=== PATIENT | female | born 1990 | race American Indian/Alaskan Native ===

== ENCOUNTER 2016-11-07 20:21 | Emergency (ER) | payer SELFPAY ==
[2016-11-08] MEDS ORDERED: FLEXERIL PO ONE (00:31)
[2016-11-08] MEDS ORDERED: TORADOL IM ONE (00:31)
--- NOTE | 2016-11-08 00:43 | Emergency Department Report ---
HPI - General Chief Complaint: Extremity Injury, Lower Time Seen by Provider: 11/08/16 00:01 - HPI HPI: Patient is a 26-year-old female presents to ED complaining of right wrist pain 1 day. Patient states she woke up yesterday morning pain on the right wrist. Patient states she did not injure the wrist in any way. She states she has a history of carpal from playing [employer] back in high school. She denies loss of sensation in wrist or hand, radiating pain, fever chills nausea vomiting abdominal pain and shortness of breath chest pain or any other problems. ED Past Medical Hx - Past Medical History Previous Medical History?: Yes Additional medical history: bronchitis - Social History Smoking Status: Never Smoker Substance Use Type: None - Medications Home Medications: Home Medications Medication Instructions Recorded Confirmed Last Taken Type Amoxicillin [Trimox CAP] 500 mg PO Q8H #30 capsule 03/17/14 Unknown Rx Vit#96/Ferrous Fum/FA 1 each PO QDAY #30 tablet 03/17/14 Unknown Rx [ Tablet] Amoxicillin [Amoxicillin TAB] 875 mg PO BID #20 tablet 04/30/14 Unknown Rx Cyclobenzaprine [Flexeril 10 MG 10 mg PO QHS #30 tablet 11/08/16 Unknown Rx TAB] Naproxen [Naprosyn] 500 mg PO BID #40 tablet 11/08/16 Unknown Rx ED Review of Systems ROS: Stated complaint: RT ARM/WRIST/FINGER PAIN/SWOLLEN Other details as noted in HPI Constitutional: denies: chills, fever Eyes: denies: eye pain, eye discharge, vision change ENT: denies: ear pain, throat pain Respiratory: denies: cough, shortness of breath, wheezing Cardiovascular: denies: chest pain, palpitations Endocrine: no symptoms reported Gastrointestinal: denies: abdominal pain, nausea, diarrhea Genitourinary: denies: urgency, dysuria, discharge Musculoskeletal: denies: back pain, joint swelling, arthralgia Skin: denies: rash, lesions Neurological: denies: headache, weakness, paresthesias Psychiatric: denies: anxiety, depression Hematological/Lymphatic: denies: easy bleeding, easy bruising Physical Exam - Physical Exam Vital Signs: Vital Signs 11/07/16 22:47 Temperature 98.5 F Pulse Rate 58 L Respiratory 20 Rate Blood Pressure 134/70 O2 Sat by Pulse 99 Oximetry Physical Exam: GENERAL: Alert and oriented x3, no apparent distress, Normal Gait, atraumatic. HEAD: Head is normocephalic and a-traumatic. EYES: Extra ocular muscles are intact. Pupils are equal, round, and reactive to light and accommodation. LUNGS: Symetrical with respiration, No wheezing, no rales or crackles, CTAB. HEART: S1, S2 present, regular rate and rhythm without murmur, no rubs, no gallops. Non tender to palpation ABDOMEN: No organomegaly was noted,Positive bowel sounds, soft, and non- distended. Nontender to palpation on all Quadrants, NO CVA tenderness. EXTREMITIES/MUSCULOSKELETAL: No cyanosis, clubbing, rash, lesions or edema. Full ROM bilaterally. Radial Pulses 2+ bilaterally. LE and UE 5+ strength bilaterally. Respiratory is intact. No edema, no erythematous, no swelling. NEUROLOGIC: The patient is cooperative with no focal neurologic deficits. Cranial nerves II through XII are grossly intact. Normal speech. PSYCHIATRIC: Mood is congruent with affect, denies suicidal or homicidal ideations. SKIN: Warm and dry, No lesions, No ulceration or induration present. ED Course Vital Signs 11/07/16 22:47 Temperature 98.5 F Pulse Rate 58 L Respiratory 20 Rate Blood Pressure 134/70 O2 Sat by Pulse 99 Oximetry ED Medical Decision Making - Medical Decision Making 26-year-old female presents with strain of the wrist ED course: Patient received Toradol and Flexeril in ED. X-ray of the hand and wrist ordered. X-ray of the hand and wrist shows fractures dislocations no acute findings Discussed this patient x-ray findings Discussed patient to rest arm wrist brace given to patient prior to discharge Vital signs are normal patient is now acute distress Discuss heat therapy to wrist 3 times daily. Follow-up with primary care physician in 3-5 days Critical care attestation.: If time is entered above; I have spent that time in minutes in the direct care of this critically ill patient, excluding procedure time. ED Disposition Clinical Impression: Arthralgia of wrist, right Disposition: DC-01 TO HOME OR SELFCARE Is pt being admited?: No Does the pt Need Aspirin: No Condition: Stable Instructions: Arthralgia (ED), Carpal Tunnel Syndrome (ED) Prescriptions: Cyclobenzaprine [Flexeril 10 MG TAB] 10 mg PO QHS #30 tablet Naproxen [Naprosyn] 500 mg PO BID #40 tablet Referrals: PRIMARY CARE, [Primary Care Provider] - 3-5 Days [facility] [place]] - 3-5 Days [facility] [Outside] - 3-5 Days Forms: Work/School Release Form(ED) Time of Disposition: 00:56
--- NOTE | 2016-11-08 02:05 | XRay Report ---
FINAL REPORT PROCEDURE: XR HAND 3 RT TECHNIQUE: RIGHT hand radiographs, AP, lateral, and oblique views. CPT 55896-XH HISTORY: right wrist pain COMPARISON: No prior studies are available for comparison. FINDINGS: Fracture (s) and/or Dislocation(s): None . Alignment: Normal . Joint space(s): Normal . Soft tissues: Normal . Bone mineralization: Normal . Foreign bodies: None . IMPRESSION: Normal Examination .
[2016-11-08 02:54] VITALS: BP 118/64
== END 2016-11-08 02:59 | disposition home or self-care (01) ==
LOC: ED 20:21
DX: M25.531 Pain in right wrist (principal)
CPT/HCPCS: 73130; 81025; 96372; 99284; J1885

== ENCOUNTER 2017-01-26 12:03 | Emergency (ER) | payer SELFPAY ==
[2017-01-26 12:59] LABS: Basophils % (Auto) 0.2 % (0.0-1.8); Hematocrit 34.7 % (30.3-42.9); Hemoglobin 11.1 gm/dl (10.1-14.3); Mean Corpuscular HGB Conc 32 % (30-34); Mean Corpuscular Volume 72 fl (79-97); Platelet Count 432 K/mm3 (140-440); Red Blood Count 4.85 M/mm3 (3.65-5.03); Red Cell Distribution Width 18.9 % (13.2-15.2); White Blood Count 9.1 K/mm3 (4.5-11.0)
[2017-01-26 13:10] LABS: Mean Corpuscular Hemoglobin 23 pg (28-32)
[2017-01-26 13:20] LABS: Anion Gap 17 mmol/L; BUN/Creatinine Ratio 18.33; Blood Urea Nitrogen 11 mg/dL (7-17); Carbon Dioxide 25 mmol/L (22-30); Chloride 102.3 mmol/L (98-107); Glucose 88 mg/dL (65-100); Potassium 3.7 mmol/L (3.6-5.0); Sodium 141 mmol/L (137-145)
[2017-01-26 14:44] LABS: Bilirubin,Urine NEG (Negative); Blood,Urine NEG (Negative); Ketones,Urine NEG (Negative); Leukocyte Esterase,Urine TR (Negative); Mucus,Urine 3+ /HPF; Nitrite,Urine NEG (Negative); Protein,Urine <15 mg/dL mg/dL (Negative); Urobilinogen,Urine < 2.0 mg/dL (<2.0)
[2017-01-26 17:07] VITALS: BP 117/64
[2017-01-26] MEDS ORDERED: ATROVENT IH ONE (17:11)
[2017-01-26] MEDS ORDERED: XOPENEX IH ONE (17:11)
--- NOTE | 2017-01-26 17:15 | Emergency Department Report ---
ED Shortness of Breath HPI - General Chief Complaint: Chest Pain Stated Complaint: COUGHING,CHEST PAIN Time Seen by Provider: 01/26/17 17:02 Source: patient Mode of arrival: Ambulatory Limitations: No Limitations - History of Present Illness Initial Comments: 26 years old female history of bronchitis and today was shortness of breath cough productive for 3 days associated with sharp chest pain. Patient stated that she went to an urgent care she received breathing treatments and prednisone but has symptom is not getting better. MD Complaint: shortness of breath, cough, chest pain -: days(s) Quality: sharp Associated Symptoms: chest pain, cough, sputum production - Related Data Previous Rx's Medication Instructions Recorded Last Taken Type Amoxicillin [Trimox CAP] 500 mg PO Q8H #30 capsule 03/17/14 Unknown Rx Vit#96/Ferrous Fum/FA 1 each PO QDAY #30 tablet 03/17/14 Unknown Rx [ Tablet] Amoxicillin [Amoxicillin TAB] 875 mg PO BID #20 tablet 04/30/14 Unknown Rx Cyclobenzaprine [Flexeril 10 MG 10 mg PO QHS #30 tablet 11/08/16 Unknown Rx TAB] Naproxen [Naprosyn] 500 mg PO BID #40 tablet 11/08/16 Unknown Rx Allergies Allergy/AdvReac Type Severity Reaction Status Date / Time No Known Allergies Allergy Unverified 03/17/14 17:45 ED Review of Systems ROS: Stated complaint: COUGHING,CHEST PAIN Other details as noted in HPI Comment: All other systems reviewed and negative Constitutional: denies: chills, fever Respiratory: cough, shortness of breath. denies: orthopnea Gastrointestinal: denies: abdominal pain, nausea, vomiting Genitourinary: denies: dysuria Neurological: denies: headache, weakness, numbness ED Past Medical Hx - Past Medical History Previous Medical History?: No Additional medical history: bronchitis - Social History Smoking Status: Current Every Day Smoker - Medications Home Medications: Home Medications Medication Instructions Recorded Confirmed Last Taken Type Amoxicillin [Trimox CAP] 500 mg PO Q8H #30 capsule 03/17/14 Unknown Rx Vit#96/Ferrous Fum/FA 1 each PO QDAY #30 tablet 03/17/14 Unknown Rx [ Tablet] Amoxicillin [Amoxicillin TAB] 875 mg PO BID #20 tablet 04/30/14 Unknown Rx Cyclobenzaprine [Flexeril 10 MG 10 mg PO QHS #30 tablet 11/08/16 Unknown Rx TAB] Naproxen [Naprosyn] 500 mg PO BID #40 tablet 11/08/16 Unknown Rx ED Physical Exam - General Limitations: No Limitations General appearance: alert, in no apparent distress - Eye Eye exam: Present: normal appearance - ENT ENT exam: Present: normal exam - Neck Neck exam: Present: normal inspection - Respiratory Respiratory exam: Present: respiratory distress, wheezes, rhonchi, decreased breath sounds, prolonged expiratory. Absent: normal lung sounds bilaterally, rales, stridor, accessory muscle use - Cardiovascular Cardiovascular Exam: Present: regular rate, normal rhythm, normal heart sounds - GI/Abdominal GI/Abdominal exam: Present: soft. Absent: tenderness, guarding, rebound, rigid , normal bowel sounds - Back Exam Back exam: Present: normal inspection. Absent: CVA tenderness (R), CVA tenderness (L) - Neurological Exam Neurological exam: Present: alert, oriented X3, CN II-XII intact - Psychiatric Psychiatric exam: Present: normal affect - Skin Skin exam: Present: warm, normal color ED Course Vital Signs 01/26/17 01/26/17 01/26/17 12:10 17:05 17:41 Temperature 98.6 F 98.2 F Pulse Rate 56 L 56 L Pulse Rate [ Bilateral Upper Lobe] Respiratory 16 16 16 Rate Respiratory Rate [Bilateral Upper Lobe] Blood Pressure 141/56 Blood Pressure 141/56 117/64 [Left] O2 Sat by Pulse 99 99 99 Oximetry 01/26/17 01/26/17 17:56 18:07 Temperature Pulse Rate Pulse Rate [ 62 61 Bilateral Upper Lobe] Respiratory Rate Respiratory 18 18 Rate [Bilateral Upper Lobe] Blood Pressure Blood Pressure [Left] O2 Sat by Pulse Oximetry - Reevaluation(s) Reevaluation #1: 01/26/17 18:14 Patient stated that she is feeling better. No diminished breath sounds. Provide patient with prescription for amoxicillin and advised to follow-up with her primary care physician. ED Medical Decision Making - Lab Data Result diagrams: 01/26/17 12:40 01/26/17 12:40 Critical care attestation.: If time is entered above; I have spent that time in minutes in the direct care of this critically ill patient, excluding procedure time. ED Disposition Clinical Impression: Chest pain, Acute bronchitis Disposition: DC-01 TO HOME OR SELFCARE Is pt being admited?: No Condition: Stable Instructions: Chest Pain (ED), Acute Bronchitis (ED) Referrals: PRIMARY CARE,MD [Primary Care Provider] - 3-5 Days
== END 2017-01-26 18:55 | disposition home or self-care (01) ==
LOC: ED 12:03
DX: R07.9 Chest pain, unspecified (principal); J20.9 Acute bronchitis, unspecified; F17.200 Nicotine dependence, unspecified, uncomplicated
CPT/HCPCS: 36415; 80048; 81001; 81025; 84484; 85025; 93005; 93010; 94640

== ENCOUNTER 2021-12-16 11:42 | Emergency (ER) | payer OTHER ==
[2021-12-17 00:31] VITALS: BP 162/46
--- NOTE | 2021-12-17 01:05 | Emergency Department Report ---
ED GI Bleed HPI - General Chief complaint: GI Bleed Stated complaint: RECTAL BLEED/WEAK/DIZZY Time Seen by Provider: 12/17/21 00:58 Source: EMS Mode of arrival: Wheelchair Limitations: No Limitations - History of Present Illness Initial comments: 31 yo F who present with rectal bleeding that started Tuesday about 5 days ago. She reports only one bowel movement today and she came with the picture. Pt reports that she was at [facility] [place] the other day and was there all day and was not able to be seen by any provider before she left. Pt denies any history of hemorrhoids. Blood is bright red and a lot. She reports starting her menses yesterday as well. Pt also reports some dizziness and generalized fatigue x couple of weeks. She noted history of chronic anemia. When she called her PCP she was told to be evaluated at the ED. No other modifying or associated factors reported. MD complaint: blood on toilet paper, gross hematochezia Severity scale (0 -10): 5 - Related Data Previous Rx's Medication Instructions Recorded Last Taken Type Amoxicillin [Trimox CAP] 500 mg PO Q8H #30 capsule 03/17/14 Unknown Rx Vits96/Iron Fum/Folic 1 each PO QDAY #30 tablet 03/17/14 Unknown Rx [ Tablet] Amoxicillin [Amoxicillin TAB] 875 mg PO BID #20 tablet 04/30/14 Unknown Rx Cyclobenzaprine [Flexeril 10 MG 10 mg PO QHS #30 tablet 11/08/16 Unknown Rx TAB] Naproxen [Naprosyn] 500 mg PO BID #40 tablet 11/08/16 Unknown Rx Albuterol Mdi (or & Nicu Only) 2 puff IH QID PRN #1 inhalation 01/26/17 Unknown Rx [ProAir HFA Inhaler] Azithromycin [Zithromax Z-ANN] 250 mg PO DAILY 1 Days tab 01/26/17 Unknown Rx Allergies Allergy/AdvReac Type Severity Reaction Status Date / Time No Known Allergies Allergy Unverified 03/17/14 17:45 ED Review of Systems ROS: Stated complaint: RECTAL BLEED/WEAK/DIZZY Other details as noted in HPI Comment: All other systems reviewed and negative Constitutional: other (fatigue) Gastrointestinal: hematochezia ED Past Medical Hx - Past Medical History Additional medical history: bronchitis - Social History Smoking Status: Current Every Day Smoker - Medications Home Medications: Home Medications Medication Instructions Recorded Confirmed Last Taken Type Amoxicillin [Trimox CAP] 500 mg PO Q8H #30 capsule 03/17/14 Unknown Rx Vits96/Iron Fum/Folic 1 each PO QDAY #30 tablet 03/17/14 Unknown Rx [ Tablet] Amoxicillin [Amoxicillin TAB] 875 mg PO BID #20 tablet 04/30/14 Unknown Rx Cyclobenzaprine [Flexeril 10 MG 10 mg PO QHS #30 tablet 11/08/16 Unknown Rx TAB] Naproxen [Naprosyn] 500 mg PO BID #40 tablet 11/08/16 Unknown Rx Albuterol Mdi (or & Nicu Only) 2 puff IH QID PRN #1 inhalation 01/26/17 Unknown Rx [ProAir HFA Inhaler] Azithromycin [Zithromax Z-ANN] 250 mg PO DAILY 1 Days tab 01/26/17 Unknown Rx ED Physical Exam - General Limitations: No Limitations General appearance: alert, in no apparent distress - Head Head exam: Present: normal inspection - Eye Eye exam: Present: normal appearance Pupils: Present: normal accommodation - ENT ENT exam: Present: normal exam, normal orophraynx, mucous membranes moist - Neck Neck exam: Present: normal inspection, full ROM. Absent: tenderness - Respiratory Respiratory exam: Present: normal lung sounds bilaterally. Absent: respiratory distress, accessory muscle use - Cardiovascular Cardiovascular Exam: Present: regular rate, normal rhythm, normal heart sounds - GI/Abdominal GI/Abdominal exam: Present: soft, normal bowel sounds. Absent: distended, tenderness - Extremities Exam Extremities exam: Present: normal inspection, normal capillary refill. Absent: tenderness, pedal edema - Back Exam Back exam: Absent: tenderness ED Course Vital Signs 12/16/21 12/17/21 12:08 00:30 Pulse Rate 63 69 Respiratory 14 Rate Blood Pressure 130/90 162/46 [Left] O2 Sat by Pulse 98 100 Oximetry ED Medical Decision Making - Lab Data Result diagrams: 12/17/21 01:07 12/17/21 01:07 - Medical Decision Making Painless rectal bleeding -- suspected internal hemorrhoid bleeding, this could also be coming from patient's vagina -- but most importantly will order CBC, CMP for any infectious process or electrolytes abnormality -- Lab reviewed and noted with slightly lower hemoglobin/hematocrit from 11.1/34.9 to now 9.4/30.6 mg/dL--patient reassured to follow-up with supervisor pastry at [facility] for likely endoscope/colonoscopy in the next 1 to 2 weeks. Warning was given to call or return to emergency room for reevaluation if bleeding worsen or recall. Patient was not able to give any stool for testing at this point. She actually left her room and was staying at the waiting room for her discharge paperwork. Critical care attestation.: If time is entered above; I have spent that time in minutes in the direct care of this critically ill patient, excluding procedure time. ED Disposition Clinical Impression: Internal hemorrhoids without complication GI bleeding Qualifiers: GI bleed type/associated pathology: unspecified gastrointestinal hemorrhage type Qualified Code(s): K92.2 - Gastrointestinal hemorrhage, unspecified Disposition: 01 HOME / SELF CARE / HOMELESS Is pt being admited?: No Does the pt Need Aspirin: No Condition: Stable Instructions: Gastrointestinal Bleeding, Hemorrhoids, [id number] Additional Instructions: It is very important that you call and schedule follow-up with [facility] at #[phone] for further evaluation any of your rectal bleeding. Please call or return to emergency room if your bleeding worsen or recur Increase your daily fluid to help your hydration Forms: Accompanied Note Time of Disposition: 05:36
[2021-12-17 01:26] LABS: INR 0.92 (0.87-1.13); Partial Thromboplastin Time 26.9 Sec. (24.2-36.6)
[2021-12-17 01:28] LABS: Basophils % (Auto) 0.6 % (0.0-1.8); Eosinophils # (Auto) 0.1 K/mm3 (0.0-0.4); Eosinophils % (Auto) 1.3 % (0.0-4.3); Hematocrit 30.6 % (30.3-42.9); Hemoglobin 9.4 gm/dl (10.1-14.3); Lymphocytes % (Auto) 33.2 % (13.4-35.0); Mean Corpuscular HGB Conc 31 % (30-34); Mean Corpuscular Volume 72 fl (79-97); Monocytes # (Auto) 0.5 K/mm3 (0.0-0.8); Monocytes % (Auto) 7.7 % (0.0-7.3); Platelet Count 298 K/mm3 (140-440); Red Blood Count 4.26 M/mm3 (3.65-5.03)
[2021-12-17 01:29] LABS: Red Cell Distribution Width 21.3 % (13.2-15.2)
[2021-12-17 01:39] LABS: Alanine Aminotransferase 17 units/L (7-56); Albumin 3.9 g/dL (3.9-5); Blood Urea Nitrogen 11 mg/dL (7-17); Calcium 8.7 mg/dL (8.4-10.2); Hemolysis Index 0
[2021-12-17 02:12] LABS: BUN/Creatinine Ratio 18
== END 2021-12-17 05:48 | disposition home or self-care (01) ==
LOC: ED 11:42
DX: K64.9 Unspecified hemorrhoids (principal); K92.2 Gastrointestinal hemorrhage, unspecified; F17.200 Nicotine dependence, unspecified, uncomplicated
CPT/HCPCS: 36415; 80053; 83690; 85025; 85610; 85730; 99283